=== PATIENT | female | born 1995 | race Caucasian/White ===

== ENCOUNTER 2017-05-25 19:40 | Emergency (ER) | payer SELFPAY ==
[2017-05-25 20:06] VITALS: BP 136/79
== END 2017-05-25 21:46 | disposition home or self-care (01) ==
LOC: ED 19:40
DX: S62.600A Fracture of unspecified phalanx of right index finger, initial encounter for closed fracture (principal); Y04.0XXA Assault by unarmed brawl or fight, initial encounter; Y92.89 Other specified places as the place of occurrence of the external cause; Y93.89 Activity, other specified; Y99.8 Other external cause status